=== PATIENT | female | born 1960 | race American Indian/Alaskan Native ===

== ENCOUNTER 2020-04-26 08:36 | Emergency (ER) | payer MEDICAID ==
[2020-04-26] MEDS ORDERED: MORPHINE 4 MG/1 ML INJ IV ONE (09:14)
[2020-04-26] MEDS ORDERED: ONDANSETRON 4 MG/2 ML INJ IV ONE (09:14)
--- NOTE | 2020-04-26 09:17 | Emergency Department Report ---
ED General Adult HPI - General Chief complaint: Fall Stated complaint: BACK/RT LEG PAIN Time Seen by Provider: 04/26/20 09:02 Source: patient, EMS Mode of arrival: Stretcher Limitations: No Limitations - History of Present Illness Initial comments: Patient presents to the emergency department the chief complaint of right leg pain that started last night around 9:30 PM. Patient states that someone fell onto her leg last night she began to have significant pain on the right side since that time. Patient states she went to sleep last night thinking it would go away this morning but it did not. Patient states any movement makes the pain worse and describes it as sharp in nature. -: Sudden Location: lower extremity Severity scale (0 -10): 9 Quality: sharp Consistency: constant Improves with: rest Worsens with: movement Associated Symptoms: denies other symptoms Treatments Prior to Arrival: none - Related Data Home Medications Medication Instructions Recorded Confirmed Last Taken Amlodipine Besylate 5 mg PO QDAY 01/19/18 01/19/18 Unknown Celexa 40 mg PO QDAY 01/19/18 01/19/18 Unknown Lisinopril 10 mg PO QDAY 01/19/18 01/19/18 Unknown Proventil Hfa 90 mcg INHALATION TID 01/19/18 01/19/18 Unknown QUEtiapine Fumarate 400 mg PO QDAY 01/19/18 01/19/18 Unknown Symbicort 160-4.5 Mcg Inhaler 160 mcg INHALATION BID 01/19/18 01/19/18 Unknown Zofran TAB 8 mg PO QDAY 01/19/18 01/19/18 Unknown traZODone 100 mg PO QDAY PRN MDD 200 01/19/18 01/19/18 Unknown Previous Rx's Medication Instructions Recorded Last Taken Type HYDROcodone/APAP 5-325 [[place] 1 each PO Q6HR PRN #12 tablet 04/26/20 Unknown Rx 5/325] Allergies Allergy/AdvReac Type Severity Reaction Status Date / Time promethazine HCl AdvReac Unknown Verified 06/12/13 00:18 [From Phenergan] ED Review of Systems ROS: Stated complaint: BACK/RT LEG PAIN Other details as noted in HPI Comment: All other systems reviewed and negative Constitutional: denies: chills, fever Eyes: denies: eye pain, eye discharge, vision change ENT: denies: ear pain, throat pain Respiratory: denies: cough, shortness of breath, wheezing Cardiovascular: denies: chest pain, palpitations Endocrine: no symptoms reported Gastrointestinal: denies: abdominal pain, nausea, diarrhea Genitourinary: denies: urgency, dysuria, discharge Musculoskeletal: denies: back pain, joint swelling, arthralgia Skin: denies: rash, lesions Neurological: denies: headache, weakness, paresthesias Psychiatric: denies: anxiety, depression Hematological/Lymphatic: denies: easy bleeding, easy bruising ED Past Medical Hx - Past Medical History Hx Hypertension: Yes Hx Psychiatric Treatment: Yes (schizophrenia) Additional medical history: ANXIETY. History of metastatic carcinoma - Surgical History Additional Surgical History: hysterectomy. L-Lower Leg Amputation - Social History Smoking Status: Current Every Day Smoker Substance Use Type: Alcohol - Medications Home Medications: Home Medications Medication Instructions Recorded Confirmed Last Taken Type Amlodipine Besylate 5 mg PO QDAY 01/19/18 01/19/18 Unknown History Celexa 40 mg PO QDAY 01/19/18 01/19/18 Unknown History Lisinopril 10 mg PO QDAY 01/19/18 01/19/18 Unknown History Proventil Hfa 90 mcg INHALATION TID 01/19/18 01/19/18 Unknown History QUEtiapine Fumarate 400 mg PO QDAY 01/19/18 01/19/18 Unknown History Symbicort 160-4.5 Mcg Inhaler 160 mcg INHALATION BID 01/19/18 01/19/18 Unknown History Zofran TAB 8 mg PO QDAY 01/19/18 01/19/18 Unknown History traZODone 100 mg PO QDAY PRN MDD 200 01/19/18 01/19/18 Unknown History HYDROcodone/APAP 5-325 [[place] 1 each PO Q6HR PRN #12 tablet 04/26/20 Unknown Rx 5/325] ED Physical Exam - General Limitations: No Limitations General appearance: alert, in no apparent distress - Head Head exam: Present: atraumatic, normocephalic - Eye Eye exam: Present: normal appearance - ENT ENT exam: Present: mucous membranes moist - Neck Neck exam: Present: normal inspection - Respiratory Respiratory exam: Present: normal lung sounds bilaterally. Absent: respiratory distress - Cardiovascular Cardiovascular Exam: Present: regular rate, normal rhythm. Absent: systolic murmur, diastolic murmur, rubs, gallop - GI/Abdominal GI/Abdominal exam: Present: soft, normal bowel sounds. Absent: distended, tenderness - Extremities Exam Extremities exam: Present: other (Right pelvis, femur, tibia tender palpation) - Back Exam Back exam: Present: normal inspection - Neurological Exam Neurological exam: Present: alert, oriented X3, CN II-XII intact. Absent: motor sensory deficit - Psychiatric Psychiatric exam: Present: normal affect, normal mood - Skin Skin exam: Present: warm, dry, intact, normal color. Absent: rash ED Course Vital Signs 04/26/20 08:52 Temperature 98.6 F Pulse Rate 76 Respiratory 16 Rate Blood Pressure 130/62 [Right] O2 Sat by Pulse 100 Oximetry ED Medical Decision Making - Radiology Data Radiology results: report reviewed - Medical Decision Making Discussed results with patient Critical care attestation.: If time is entered above; I have spent that time in minutes in the direct care of this critically ill patient, excluding procedure time. ED Disposition Clinical Impression: Leg pain, Leg injury, Hip pain, right Disposition: DC-01 TO HOME OR SELFCARE Is pt being admited?: No Does the pt Need Aspirin: No Condition: Stable Additional Instructions: return if worse Referrals: PRIMARY CAREMD [Primary Care Provider] - 3-5 Days ALEXANDRA LEBLANC MD [Staff Physician] - 3-5 Days Time of Disposition: 12:18
--- NOTE | 2020-04-26 11:46 | XRay Report ---
PELVIS 1 VIEW(S) INDICATION / CLINICAL INFORMATION: pain/fall COMPARISON: CT abdomen pelvis 01/19/2018; left femur radiograph 06/12/2013 FINDINGS: BONES / JOINT(S): No acute fracture or subluxation. Mild degenerative change. Left femur demonstrates relatively decreased cortical thickness compared to prior radiograph and contralateral side. Finding s can be seen in setting of disuse. SOFT TISSUES: No significant abnormality. ADDITIONAL FINDINGS: None. Signer Name: Jens Borja MD Signed: 04/26/2020 11:41 AM Workstation Name: [id number]
--- NOTE | 2020-04-26 11:48 | XRay Report ---
RIGHT FEMUR /TIB-FIB VIEW(S) INDICATION / CLINICAL INFORMATION: pain/fall COMPARISON: None available. FINDINGS: BONES / JOINT(S): No acute fracture or subluxation. Degenerative change. No significant effusion. SOFT TISSUES: No significant abnormality. ADDITIONAL FINDINGS: None. Signer Name: Jens Borja MD Signed: 04/26/2020 11:43 AM Workstation Name: [id number]
--- NOTE | 2020-04-26 12:24 | XRay Report ---
Right leg-5 views INDICATION: pain/fall. COMPARISON: None. IMPRESSION: No acute osseous or soft tissue abnormality. 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 Signer Name: Julian Schrader MD Signed: 04/26/2020 12:19 PM Workstation Name: [id number]
[2020-04-26 13:45] VITALS: BP 130/88
== END 2020-04-26 12:30 | disposition home or self-care (01) ==
LOC: ED 08:36
DX: S79.811A Other specified injuries of right hip, initial encounter (principal); S89.81XA Other specified injuries of right lower leg, initial encounter; I10 Essential (primary) hypertension; F17.200 Nicotine dependence, unspecified, uncomplicated; F20.89 Other schizophrenia; F41.9 Anxiety disorder, unspecified; Z90.710 Acquired absence of both cervix and uterus; Z79.899 Other long term (current) drug therapy; Z88.1 Allergy status to other antibiotic agents; X58.XXXA Exposure to other specified factors, initial encounter; Y93.89 Activity, other specified; Y92.89 Other specified places as the place of occurrence of the external cause; Y99.8 Other external cause status
CPT/HCPCS: 72170; 73552; 73590; 96374; 96375; 99284; J2270; J2405

== ENCOUNTER 2021-11-20 18:00 | Emergency (ER) | payer MEDICAID ==
[2021-11-20] MEDS ORDERED: ONDANSETRON 4 MG/2 ML INJ IV ONE (19:43)
[2021-11-20] MEDS ORDERED: SODIUM CHLORIDE 0.9% 1000 ML 1,000 ML IV ONE (19:43)
[2021-11-20] MEDS ORDERED: MORPHINE 4 MG/1 ML INJ IV ONE ×2 (19:43→23:59)
--- NOTE | 2021-11-20 20:39 | Emergency Department Report ---
ED Abdominal Pain HPI - General Chief Complaint: Abdominal Pain Stated Complaint: ABD PAIN Time Seen by Provider: 11/20/21 19:38 Source: family Mode of arrival: Wheelchair Limitations: Altered Mental Status - History of Present Illness Initial Comments: Patient is a 60-year-old female with history of stomach and kidney cancer in remission presenting to the ED with complaint of generalized abdominal pain, nausea and vomiting for the past 4 days. States she has been taking Zofran at home with no relief. Severity: severe Severity scale (0 -10): 10 Quality: aching Consistency: constant Improves With: nothing Worsens With: nothing Associated Symptoms: nausea, vomiting - Related Data Home Medications Medication Instructions Recorded Confirmed Last Taken Amlodipine Besylate 5 mg PO QDAY 01/19/18 01/19/18 Unknown Celexa 40 mg PO QDAY 01/19/18 01/19/18 Unknown Lisinopril 10 mg PO QDAY 01/19/18 01/19/18 Unknown Proventil Hfa 90 mcg INHALATION TID 01/19/18 01/19/18 Unknown QUEtiapine Fumarate 400 mg PO QDAY 01/19/18 01/19/18 Unknown Symbicort 160-4.5 Mcg Inhaler 160 mcg INHALATION BID 01/19/18 01/19/18 Unknown Zofran TAB 8 mg PO QDAY 01/19/18 01/19/18 Unknown traZODone 100 mg PO QDAY PRN MDD 200 01/19/18 01/19/18 Unknown Previous Rx's Medication Instructions Recorded Last Taken Type HYDROcodone/APAP 5-325 [[place] 1 each PO Q6HR PRN #12 tablet 04/26/20 Unknown Rx 5/325] Allergies Allergy/AdvReac Type Severity Reaction Status Date / Time promethazine HCl AdvReac Unknown Verified 06/12/13 00:18 [From Phenergan] ED Review of Systems ROS: Stated complaint: ABD PAIN Other details as noted in HPI Constitutional: denies: chills, fever Respiratory: denies: cough, shortness of breath, wheezing Cardiovascular: denies: chest pain, palpitations Endocrine: no symptoms reported Gastrointestinal: abdominal pain, nausea, vomiting Musculoskeletal: denies: back pain, joint swelling, arthralgia Skin: denies: rash, lesions Neurological: denies: headache, weakness, paresthesias Psychiatric: denies: anxiety, depression Hematological/Lymphatic: denies: easy bleeding, easy bruising ED Past Medical Hx - Past Medical History Previous Medical History?: Yes Hx Hypertension: Yes Hx of Cancer: Yes Hx Psychiatric Treatment: Yes (schizophrenia) Additional medical history: ANXIETY. History of metastatic carcinoma - Surgical History Past Surgical History?: Yes Additional Surgical History: hysterectomy. L-Lower Leg Amputation - Social History Smoking Status: Current Every Day Smoker Substance Use Type: None - Medications Home Medications: Home Medications Medication Instructions Recorded Confirmed Last Taken Type Amlodipine Besylate 5 mg PO QDAY 01/19/18 01/19/18 Unknown History Celexa 40 mg PO QDAY 01/19/18 01/19/18 Unknown History Lisinopril 10 mg PO QDAY 01/19/18 01/19/18 Unknown History Proventil Hfa 90 mcg INHALATION TID 01/19/18 01/19/18 Unknown History QUEtiapine Fumarate 400 mg PO QDAY 01/19/18 01/19/18 Unknown History Symbicort 160-4.5 Mcg Inhaler 160 mcg INHALATION BID 01/19/18 01/19/18 Unknown History Zofran TAB 8 mg PO QDAY 01/19/18 01/19/18 Unknown History traZODone 100 mg PO QDAY PRN MDD 200 01/19/18 01/19/18 Unknown History HYDROcodone/APAP 5-325 [[place] 1 each PO Q6HR PRN #12 tablet 04/26/20 Unknown Rx 5/325] ED Physical Exam - General Limitations: Altered Mental Status General appearance: alert, in no apparent distress - Head Head exam: Present: atraumatic, normocephalic - Neck Neck exam: Present: normal inspection - Respiratory Respiratory exam: Present: normal lung sounds bilaterally. Absent: respiratory distress - Cardiovascular Cardiovascular Exam: Present: regular rate, normal rhythm. Absent: systolic murmur, diastolic murmur, rubs, gallop - GI/Abdominal GI/Abdominal exam: Present: soft, tenderness (Abdomen diffusely tender). Absent: guarding, rebound, rigid - Rectal Rectal exam: Present: deferred - Extremities Exam Extremities exam: Present: other (Left BKA) - Neurological Exam Neurological exam: Present: alert, oriented X3, CN II-XII intact - Psychiatric Psychiatric exam: Present: normal affect, normal mood - Skin Skin exam: Present: warm, dry, intact, normal color ED Course Vital Signs 11/20/21 11/20/21 19:41 19:43 Temperature 98 F Pulse Rate 71 Respiratory 20 Rate Blood Pressure 170/86 O2 Sat by Pulse 99 97 Oximetry ED Medical Decision Making - Lab Data Result diagrams: 11/20/21 20:23 11/20/21 20:23 - Medical Decision Making Labs reviewed and are grossly unremarkable. CT abdomen pelvis shows fluid distended gallbladder with mild wall thickening however no stones. LFTs including T bili normal. No other acute findings noted. On reassessment patient sleeping comfortably in bed. She is stable for discharge home with return precautions. Critical care attestation.: If time is entered above; I have spent that time in minutes in the direct care of this critically ill patient, excluding procedure time. ED Disposition Clinical Impression: Diffuse abdominal pain, Nausea and vomiting Disposition: HOME / SELF CARE / HOMELESS Is pt being admited?: No Does the pt Need Aspirin: No Condition: Stable Instructions: Nausea, Adult, Abdominal Pain, Adult, [id number], Abdominal Pain (ED) Time of Disposition: 23:04
[2021-11-20 20:49] LABS: Basophils # (Auto) 0.1 K/mm3 (0.0-0.1); Basophils % (Auto) 0.9 % (0.0-1.8); Eosinophils % (Auto) 0.4 % (0.0-4.3); Hematocrit 36.5 % (30.3-42.9); Hemoglobin 11.6 gm/dl (10.1-14.3); Lymphocytes # (Auto) 1.3 K/mm3 (1.2-5.4); Lymphocytes % (Auto) 19.3 % (13.4-35.0); Mean Corpuscular HGB Conc 32 % (30-34); Mean Corpuscular Volume 74 fl (79-97); Monocytes # (Auto) 0.4 K/mm3 (0.0-0.8); Monocytes % (Auto) 5.9 % (0.0-7.3); Platelet Count 207 K/mm3 (140-440); Red Blood Count 4.92 M/mm3 (3.65-5.03); Red Cell Distribution Width 14.3 % (13.2-15.2)
[2021-11-20 21:10] LABS: Alanine Aminotransferase 17 units/L (7-56); Albumin 4.1 g/dL (3.9-5); BUN/Creatinine Ratio 16; Blood Urea Nitrogen 14 mg/dL (7-17); Calcium 8.3 mg/dL (8.4-10.2); Hemolysis Index 5
[2021-11-20 21:11] LABS: Bilirubin,Direct < 0.2 mg/dL (0-0.2)
--- NOTE | 2021-11-20 22:24 | Cat Scan Report ---
CT abdomen pelvis w con INDICATION / CLINICAL INFORMATION: Abdominal pain. TECHNIQUE: CT abdomen pelvis following [address] scans at this location are performed using CT d ose reduction for ALARA by means of automated exposure control. COMPARISON: 01/19/2018 FINDINGS: Abdomen and pelvis: There is mild intra and extra hepatic biliary dilatation similar to the prior exa m. The common bile duct again appears dilated measuring about 1.2 cm in diameter but no obvious cause of obstruction is identified. The gallbladder is partially fluid distended. There is slight thickeni ng of the gallbladder wall. Prior left-sided nephrectomy. The right kidney is unremarkable. The splee n is been removed. There is evidence of resection of the tail the pancreas. Sigmoid diverticulosis without evidence of diverticulitis. No free air or free fluid. The appendix is unremarkable. Urinary bladder is only partially fluid dist ended. The lower lungs are grossly clear Review of bone windows demonstrates mild thoracolumbar degenerative changes. IMPRESSION: 1. Borderline thickening of the gallbladder wall however no gallstones are appreciated. Gallbladder u ltrasound may be useful for further evaluation. 2. Chronic mild intra and extrahepatic biliary dilatation appear stable from 2018. 3. Left-sided nephrectomy and other incidental findings as noted above. Signer Name: Remy Millan MD Signed: 11/20/2021 10:19 PM Workstation Name: [id number]
[2021-11-20] MEDS ORDERED: MORPHINE 4 MG/1 ML INJ ONE (23:58)
[2021-11-21 00:12] LABS: Bilirubin,Urine NEG (Negative); Blood,Urine NEG (Negative); Color,Urine Straw (Yellow); Protein,Urine <15 mg/dL mg/dL (Negative); Urobilinogen,Urine < 2.0 mg/dL (<2.0); WBC,Urine < 1.0 /HPF (0.0-6.0)
[2021-11-21 02:44] VITALS: BP 104/65
== END 2021-11-21 02:44 | disposition home or self-care (01) ==
LOC: ED 18:00
DX: R10.84 Generalized abdominal pain (principal); R11.2 Nausea with vomiting, unspecified; I10 Essential (primary) hypertension; Z85.9 Personal history of malignant neoplasm, unspecified; F20.9 Schizophrenia, unspecified; Z98.890 Other specified postprocedural states; Z79.899 Other long term (current) drug therapy; Z91.09 Other allergy status, other than to drugs and biological substances; F17.200 Nicotine dependence, unspecified, uncomplicated
CPT/HCPCS: 36415; 74177; 80048; 80076; 81001; 82140; 83690; 85025; 86850; 86900; 86901; 96361; 96374; 96375; 96376; 99284; J2270; J2405; J7030; Q9967